=== PATIENT | male | born 1950 | race Caucasian/White ===

== ENCOUNTER 2018-09-27 09:18 | Day surgery (SDC) | payer MEDICARE, OTHER ==
[2018-09-26 08:38] VITALS: BMI 24.3
--- NOTE | 2018-09-27 12:49 | OP ---
DATE OF PROCEDURE: 09/27/2018 SURGEON: Jeremiah Medina M.D. PROCEDURE: Esophagogastroduodenoscopy with biopsy and colonoscopy with polypectomy. PREOPERATIVE DIAGNOSES: 1. Periumbilical pain. 2. Reflux. 3. History of colon polyps. POSTOPERATIVE DIAGNOSES: 1. Mild antral gastritis, biopsied. 2. Duodenum, second portion, biopsied to rule out celiac disease in light of patient's intermittent bouts of diarrhea and mid abdominal pain. 3. Colonoscopy notable for 10 polyps, 5 of which were diminutive and ablated, 5 of which were remove d from between the size of 2 and 5 mm from the right colon and sigmoid colon and submitted to patholo gy. 4. Diverticulosis coli. RECOMMENDATIONS: 1. Await histopathology. 2. No source of the patient's abdominal pain were identified. I recommended he cut back on alcohol and will get a CAT scan of abdomen and pelvis to rule out small bowel disease before he goes for his elective umbilical and right lower quadrant hernia repair. ANESTHESIA: TIVA. PROCEDURE IN DETAIL: After the patient was informed of the risks and benefits, possible complicatio ns, informed consent was obtained. The patient was brought to the endoscopy suite where he was sedat ed in gradual fashion. Once he was comfortable a bite block was placed in the incisural orifice. Th e endoscope was advanced through the esophagus, stomach, second and third portion of the duodenum and slowly removed. The esophagus was normal with no evidence of Albarado's esophagus or esophagitis. T he stomach was entered and found to be notable for mild nodular antral gastritis, biopsies taken, sub mitted to pathology. Retroflexed views in the stomach were normal. Stomach had normal sensibility. The duodenum was normal. The bulb was normal and the second and third portions were normal except f or a mild periampullary diverticula. Biopsies were taken to rule out celiac disease, although the mu cosa did appear normal. The scope was removed. The patient was turned in the room. A rectal examination was performed. The endoscope was advanced in the anal canal, through the colon to the cecum which was identified by the ileocecal valve and evan endiceal orifice. There was diverticulosis coli throughout the colon. The terminal ileum was normal . There are no signs of colitis or inflammation. There were 10 small polyps ranging in size from 2 to 5 mm scattered throughout the colon. These were all removed by hot snare polypectomy, 5 were retr ieved from the sigmoid and 3 from the right colon. The remainder were ablated. Retroflexed views in the rectum were normal. The scope was removed. The patient tolerated the procedure well with no co mplications.
[2018-09-27] MEDS ORDERED: PROPOFOL 200 MG/20 ML VIAL ONE (17:21)
== END 2018-09-27 12:24 | disposition home or self-care (01) ==
LOC: SDC 09:18
PROVIDERS: ATTEND Internal Medicine Gastroenterology
PROC: 0DBN8ZX Excision of Sigmoid Colon, Via Natural or Artificial Opening Endoscopic, Diagnostic (ICD-10-PCS; principal; 2018-09-27)
PROC: 0DB98ZX Excision of Duodenum, Via Natural or Artificial Opening Endoscopic, Diagnostic (ICD-10-PCS; 2018-09-27)
DX: K63.5 Polyp of colon (principal); K29.50 Unspecified chronic gastritis without bleeding; K21.9 Gastro-esophageal reflux disease without esophagitis; T88 Other complications of surgical and medical care, not elsewhere classified; Z86.010 Personal history of colon polyps; Z79.82 Long term (current) use of aspirin; Z79.899 Other long term (current) drug therapy; Z88.5 Allergy status to narcotic agent
CPT/HCPCS: 88305; 88312; J1610; J2704

== ENCOUNTER 2018-10-10 09:51 | Outpatient (CLI) | payer MEDICARE, OTHER ==
--- NOTE | 2018-10-10 12:20 | CT ---
CT OF THE ABDOMEN AND PELVIS WITH CONTRAST: COMPARISON: None. HISTORY: Paraumbilical abdominal pain for months. Inflammation seen on previous colonoscopy. TECHNIQUE: Multiple contiguous axial images were obtained in a CT of the abdomen and pelvis with contrast. Paul nal reformats were performed. P.o. contrast was administered. FINDINGS: This exam is slightly limited along the mid portion as the patient sneezed during the examination. T he liver, gallbladder, kidneys, adrenal glands, and pancreas are unremarkable. Calcifications in the spleen are from prior granulomatous disease. There are a few scattered diverticula in the left colon. There is apparent thickening of the wall of the left colon, but this may be secondary to its decompressed state. The small bowel and appendix a re unremarkable. No abdominal or pelvic lymphadenopathy are seen. Atherosclerotic calcifications are seen in the aort a. There is a small fat-containing right inguinal hernia. Degenerative changes are seen in the spin e. The visualized inferior thorax is unremarkable. IMPRESSION: 1. No evidence of acute intraabdominal/pelvic abnormality. 2. Diverticulosis. 3. Possible thickening of the wall of the left colon versus artifact from a decompressed colon. 4. Right inguinal hernia. POS: [facility]
[2018-10-10] MEDS ORDERED: ISOVUE-370 76%-LOCM 1 ML ONE (13:21)
== END 2018-10-10 09:52 | disposition home or self-care (01) ==
LOC: BICCT 09:51
PROVIDERS: ATTEND Internal Medicine Gastroenterology
DX: R10.33 Periumbilical pain (principal); K57.30 Diverticulosis of large intestine without perforation or abscess without bleeding; K40.90 Unilateral inguinal hernia, without obstruction or gangrene, not specified as recurrent
CPT/HCPCS: 74177; 82565

== ENCOUNTER 2025-10-16 06:02 | Day surgery (SDC) | payer MEDICARE, OTHER ==
[2025-10-15 10:46] VITALS: BMI 22.9
[2025-10-16] MEDS ORDERED: GLYCOPYRROLATE/PF 0.2 MG/ML VIAL ONE (07:21)
[2025-10-16] MEDS ORDERED: PHENYLEPHRINE-NS 100 MCG/ML 10 ML SYRINGE ONE (07:21)
[2025-10-16] MEDS ORDERED: PROPOFOL 200 MG/20 ML VIAL ONE (08:11)
== END 2025-10-16 10:30 | disposition home or self-care (01) ==
LOC: SDC 06:02
PROVIDERS: ATTEND Internal Medicine Gastroenterology
PROC: 0DBK8ZZ Excision of Ascending Colon, Via Natural or Artificial Opening Endoscopic (ICD-10-PCS; principal; 2025-10-16)
PROC: 0DBN8ZZ Excision of Sigmoid Colon, Via Natural or Artificial Opening Endoscopic (ICD-10-PCS; 2025-10-16)
PROC: 0DBM8ZZ Excision of Descending Colon, Via Natural or Artificial Opening Endoscopic (ICD-10-PCS; 2025-10-16)
PROC: 0DBH8ZZ Excision of Cecum, Via Natural or Artificial Opening Endoscopic (ICD-10-PCS; 2025-10-16)
PROC: 0DB98ZX Excision of Duodenum, Via Natural or Artificial Opening Endoscopic, Diagnostic (ICD-10-PCS; 2025-10-16)
PROC: 0DB68ZX Excision of Stomach, Via Natural or Artificial Opening Endoscopic, Diagnostic (ICD-10-PCS; 2025-10-16)
DX: Z12.11 Encounter for screening for malignant neoplasm of colon (principal); D12.0 Benign neoplasm of cecum; D12.4 Benign neoplasm of descending colon; D12.2 Benign neoplasm of ascending colon; D12.5 Benign neoplasm of sigmoid colon; K29.50 Unspecified chronic gastritis without bleeding; K57.30 Diverticulosis of large intestine without perforation or abscess without bleeding; K21.9 Gastro-esophageal reflux disease without esophagitis; F17.210 Nicotine dependence, cigarettes, uncomplicated; Z86.0100 Personal history of colon polyps, unspecified; Z90.49 Acquired absence of other specified parts of digestive tract; Z90.89 Acquired absence of other organs; Z88.8 Allergy status to other drugs, medicaments and biological substances; Z79.899 Other long term (current) drug therapy
CPT/HCPCS: 45385; 43239; J2250; J2704; J3010; J3490; 88305; 88342